=== PATIENT | female | born 1985 | race Caucasian/White ===

== ENCOUNTER 2018-07-28 06:55 | Emergency (ER) | payer BC ==
[~2018-07-28] VITALS: Ht 167.6 cm; Wt 68.0 kg
[~2018-07-28 06:55] MED LIST: ERGO400C PO; LIRA0.6P SQ; MTF500T PO; MULT-974 PO; OMG1KC PO; OXYC-12 PO; SPIR100T28 PO
--- OUTSIDE RECORDS SUMMARY | 2018-07-28 07:00 | XMS REPORT | Continuity of Care Document ---
Author Author [facility] Organization [facility] Address Unknown Phone Unavailable Care Team Providers Care Ground Support Equipment Mechanic Name Role Phone JOSE CORREA DO PP Insurance Providers Payer Name Policy Number Subscriber Name Relationship [facility] [id number] Leo Camacho Advance Directives Directive Response Recorded Date Advance Directives N 08/24/13 8:30am Health Care Power of Elementary Summer School Teacher N 08/22/13 2:08pm Organ Donor Y 08/22/13 2:08pm Problems No Known Problems or Medical conditions. Allergies, Adverse Reactions, Alerts Allergen Type Severity Reaction Last Updated No Known Drug Allergies 08/22/13 Medications Medication Dose Units Route Sig Qty Days Oxycodone Hcl/Acetaminophen (Percocet 5-325 Mg Tablet) 1 - 2 Each PO EVERY 4-6HRS PRN 35 Cholecalciferol (Vitamin D) 400 Unit PO DAILY Fish Oil 1000 Mg PO DAILY Multivitamin (Multi Vitamin Daily) 1 Tab PO DAILY Spironolactone 100 Mg PO DAILY Metformin HCl (Metformin 500 Mg) 500 Mg PO BID WITH MEALS Liraglutide (Victoza) 1.2 Mg SQ DAILY Response Recorded Date/Time Status not known Unknown Results Test Date Result Interp. Ref. Range Alanine Aminotransferase (ALT/SGPT) August 22, 2013 2:25pm 46 U/L N 30-65 Albumin August 22, 2013 2:25pm 3.7 G/ DL N 3.4-5.0 Alkaline Phosphatase August 22, 2013 2:25pm 94 U/L N 50-136 Aspartate Amino Transf (AST/SGOT) August 22, 2013 2:25pm 22 U/L N 15-37 BUN/Creatinine Ratio August 22, 2013 2:25pm 17 - Basophils # (Auto) August 22, 2013 2:25pm 0.1 10^3/uL N 0.0-0.1 Basophils (%) (Auto) August 22, 2013 2:25pm 1 % N 0-10 Blood Urea Nitrogen August 22, 2013 2:25pm 17 MG/DL N 7-18 Calcium Level August 22, 2013 2:25pm 9.1 MG/DL N 8.5-10.1 Carbon Dioxide Level August 22, 2013 2:25pm 29 MMOL/L N 21-32 Carboxyhemoglobin October 11, 2006 4:35am 3.7 % H 0.5-2.5 Chloride Level August 22, 2013 2:25pm 101 MMOL/L N 101-110 Creatinine August 22, 2013 2:25pm 1.0 MG/DL N 0.6-1.3 Eosinophils # (Auto) August 22, 2013 2:25pm 0.1 10^3/uL N 0.0-0.3 Eosinophils (%) (Auto) August 22, 2013 2:25pm 2 % N 0-10 Free Thyroxine December 17, 2009 11:45am 0.54 NG/DL PL 0.59-1.17 Glucose Level August 22, 2013 2:25pm 100 MG/DL N 74-106 Hematocrit August 22, 2013 2:25pm 42 % N 35-52 Hemoglobin August 22, 2013 2:25pm 14.3 G/DL N 11.5-16.0 Insulin Level August 01, 2009 9:30am 12.6 mU/L - Lymphocytes # (Auto) August 22, 2013 2:25pm 3.3 X 10^3 N 1.0-4.0 Lymphocytes (%) (Auto) August 22, 2013 2:25pm 42 % N 12-44 Mean Corpuscular Hemoglobin August 22, 2013 2:25pm 30 PG N 25-34 Mean Corpuscular Hemoglobin Concent August 22, 2013 2:25pm 34 G/DL N 32-36 Mean Corpuscular Volume August 22, 2013 2:25pm 88 FL N 80-99 Mean Platelet Volume August 22, 2013 2:25pm 8.9 FL N 7.4-10.4 Monocytes # (Auto) August 22, 2013 2:25pm 0.5 X 10^3 N 0.0-1.0 Monocytes (%) (Auto) August 22, 2013 2:25pm 6 % N 0-12 Monoscreen December 17, 2009 11:45am NEGATIVE - Neutrophils # (Auto) August 22, 2013 2:25pm 3.9 X 10^3 N 1.8-7.8 Neutrophils (%) (Auto) August 22, 2013 2:25pm 50 % N 42-75 Platelet Count August 22, 2013 2:25pm 321 10^3/uL N 130-400 Potassium Level August 22, 2013 2:25pm 3.6 MMOL/L N 3.6-5.0 Red Blood Count August 22, 2013 2:25pm 4.73 10^6/uL N 4.35-5.85 Red Cell Distribution Width August 22, 2013 2:25pm 12.4 % N 10.0-14.5 Serum Test, Qualitative December 17, 2009 11:45am NEGATIVE - Sodium Level August 22, 2013 2:25pm 138 MMOL/L N 135-145 Thyroid Stimulating Hormone (TSH) December 17, 2009 11:45am 2.43 UIU/ML N 0.34- 5.60 Total Bilirubin August 22, 2013 2:25pm 0.4 MG/DL N 0.0-1.0 Total Protein August 22, 2013 2:25pm 7.6 G/DL N 6.4-8.2 Urine Bacteria August 22, 2013 2:25pm TRACE /HPF - Urine Bilirubin August 22, 2013 2:25pm NEGATIVE - Urine Calcium Oxalate Crystals August 22, 2013 2:25pm FEW /LPF H - Urine Casts August 22, 2013 2:25pm NONE /LPF - Urine Clarity August 22, 2013 2:25pm SLIGHTLY CLOUDY - Urine Color August 22, 2013 2:25pm YELLOW - Urine Crystals August 22, 2013 2:25pm PRESENT /LPF H - Urine Culture Indicated August 22, 2013 2:25pm NO - Urine Glucose (UA) August 22, 2013 2:25pm NEGATIVE - Urine Ketones August 22, 2013 2:25pm NEGATIVE - Urine Leukocyte Esterase August 22, 2013 2:25pm 1+ H - Urine Mucus August 22, 2013 2:25pm MODERATE /LPF H - Urine Nitrite August 22, 2013 2:25pm NEGATIVE - Urine Test August 22, 2013 2:25pm NEGATIVE - Urine Protein August 22, 2013 2:25pm 1+ H - Urine RBC August 22, 2013 2:25pm NONE / HPF - Urine Specific [place] August 22, 2013 2:25pm 1.020 - Urine Squamous Epithelial Cells August 22, 2013 2:25pm 25-50 /HPF H - Urine Urobilinogen August 22, 2013 2:25pm 1 MG/DL - Urine WBC August 22, 2013 2:25pm 2-5 / HPF - Urine pH August 22, 2013 2:25pm 6 - White Blood Count August 22, 2013 2:25pm 8.0 10^3/uL N 4.3-11.0 Lab Scanned Report March 14, 2013 6:16pm LAB Reports [id number] - Estimat Glomerular Filtration Rate August 22, 2013 2:25pm > 60 - Urine RBC (Auto) August 22, 2013 2:25pm NEGATIVE - Procedures Procedure Code Date MRSA Screen 08/22/13 Encounters Encounter Location Date/Time Departed Emergency Room [facility] 11/05 3:50am
--- OUTSIDE RECORDS SUMMARY | 2018-07-28 07:00 | XMS REPORT | Continuity of Care Document ---
Author Author [facility] Organization [facility] Address Unknown Phone Unavailable Allergies Active Description Code Type Severity Reaction Onset Reported/Identified Relationship to Patient Clinical Status Yes No Known Drug Allergies [id number] Drug Allergy Unknown N/A 08/22/2013 Medications There is no data. Problems Date Dx Coded Attending Type Code Diagnosis Diagnosed By 08/24/2013 JOE KING MD Ot 575.11 CHRONIC CHOLECYSTITIS 08/12/2016 ROBERT KAISER Ot 789.06 ABDOMINAL PAIN, EPIGASTRIC 08/12/2016 JOE KING MD Ot 575.8 DIS OF GALLBLADDER NEC 08/12/2016 JOE KING MD Ot V72.63 PRE-PROCEDURAL LABORATORY EXAMINATION 08/12/2016 JOE KING MD Ot V72.81 [id number] CARDIOVASCULAR 08/12/2016 JOE KING MD Ot V74.8 SCREEN-BACTERIAL DIS NEC 08/12/2016 CRISTIAN CREWS MOLDING LINE ASSISTANT Ot 724.2 LUMBAGO 08/12/2016 CRISTIAN CREWS MOLDING LINE ASSISTANT Ot 724.4 LUMBOSACRAL NEURITIS NOS 08/13/2016 CRISTIAN CREWS MOLDING LINE ASSISTANT Ot E28.1 ANDROGEN EXCESS 08/13/2016 CRISTIAN CREWS MOLDING LINE ASSISTANT Ot K76.0 FATTY (CHANGE OF) LIVER, NOT ELSEWHERE C 08/13/2016 CRISTIAN CREWS MOLDING LINE ASSISTANT Ot R10.30 LOWER ABDOMINAL PAIN, UNSPECIFIED 08/13/2016 CRISTIAN CREWS MOLDING LINE ASSISTANT Ot Z90.49 ACQUIRED ABSENCE OF OTHER SPECIFIED PART 08/25/2016 CRISTIAN CREWS MOLDING LINE ASSISTANT Ot E28.1 ANDROGEN EXCESS 08/25/2016 CRISTIAN CREWS MOLDING LINE ASSISTANT Ot K76.0 FATTY (CHANGE OF) LIVER, NOT ELSEWHERE C 08/25/2016 CREWS, CRISTIAN L MOLDING LINE ASSISTANT Ot R10.30 LOWER ABDOMINAL PAIN, UNSPECIFIED 08/25/2016 CRISTIAN CREWS MOLDING LINE ASSISTANT Ot Z90.49 ACQUIRED ABSENCE OF OTHER SPECIFIED PART 12/16/2016 JOBROBERT MOLDING LINE ASSISTANT Ot 789.06 ABDOMINAL PAIN, EPIGASTRIC 12/16/2016 JOE KING MD Ot 575.8 DIS OF GALLBLADDER NEC 12/16/2016 JOE KING MD Ot V72.63 PRE-PROCEDURAL LABORATORY EXAMINATION 12/16/2016 JOE KING MD Ot V72.81 [id number] CARDIOVASCULAR 12/16/2016 JOE KING MD Ot V74.8 SCREEN-BACTERIAL DIS NEC 12/16/2016 CRISTIAN CREWS L MOLDING LINE ASSISTANT Ot 724.2 LUMBAGO 12/16/2016 CRISTIAN CREWS L MOLDING LINE ASSISTANT Ot 724.4 LUMBOSACRAL NEURITIS NOS 12/16/2016 CRISTIAN CREWS L MOLDING LINE ASSISTANT Ot E28.1 ANDROGEN EXCESS 12/16/2016 CRISTIAN CREWS MOLDING LINE ASSISTANT Ot K76.0 FATTY (CHANGE OF) LIVER, NOT ELSEWHERE C 12/16/2016 CRISTIAN CREWS L MOLDING LINE ASSISTANT Ot R10.30 LOWER ABDOMINAL PAIN, UNSPECIFIED 12/16/2016 CRISTIAN CREWS MOLDING LINE ASSISTANT Ot Z90.49 ACQUIRED ABSENCE OF OTHER SPECIFIED PART 04/27/2017 JOBROBERT MOLDING LINE ASSISTANT Ot 789.06 ABDOMINAL PAIN, EPIGASTRIC 04/27/2017 JOE KING MD Ot 575.8 DIS OF GALLBLADDER NEC 04/27/2017 JOE KING MD Ot V72.63 PRE-PROCEDURAL LABORATORY EXAMINATION 04/27/2017 JOE KING MD Ot V72.81 [id number]-ZNI-TZCFXSNQN CARDIOVASCULAR 04/27/2017 JOE KING MD Ot V74.8 SCREEN-BACTERIAL DIS NEC 04/27/2017 CRISTIAN CREWS L MOLDING LINE ASSISTANT Ot 724.2 LUMBAGO 04/27/2017 CRISTIAN CREWS MOLDING LINE ASSISTANT Ot 724.4 LUMBOSACRAL NEURITIS NOS 04/27/2017 CRISTIAN CREWS L MOLDING LINE ASSISTANT Ot E28.1 ANDROGEN EXCESS 04/27/2017 CRISTIAN CREWS L MOLDING LINE ASSISTANT Ot K76.0 FATTY (CHANGE OF) LIVER, NOT ELSEWHERE C 04/27/2017 CREWSCRISTIAN RAMON L MOLDING LINE ASSISTANT Ot R10.30 LOWER ABDOMINAL PAIN, UNSPECIFIED 04/27/2017 CREWSCRISTIAN RAMON L MOLDING LINE ASSISTANT Ot Z90.49 ACQUIRED ABSENCE OF OTHER SPECIFIED PART 05/07/2017 TRISTENFELICITASROBERT VARGAS MOLDING LINE ASSISTANT Ot 789.06 ABDOMINAL PAIN, EPIGASTRIC 05/07/2017 JOE KING MD Ot 575.8 DIS OF GALLBLADDER NEC 05/07/2017 JOE KING MD Ot V72.63 PRE-PROCEDURAL LABORATORY EXAMINATION 05/07/2017 JOE KING MD Ot V72.81 [id number]-TVA-[id number] CARDIOVASCULAR 05/07/2017 JOE KING MD Ot V74.8 SCREEN-BACTERIAL DIS NEC 05/07/2017 CRISTIAN CREWS MOLDING LINE ASSISTANT Ot 724.2 LUMBAGO 05/07/2017 CRISTIAN CREWS L MOLDING LINE ASSISTANT Ot 724.4 LUMBOSACRAL NEURITIS NOS 05/07/2017 CRISTIAN CREWS L MOLDING LINE ASSISTANT Ot E28.1 ANDROGEN EXCESS 05/07/2017 ELEONORA CRISTIAN L MOLDING LINE ASSISTANT Ot K76.0 FATTY (CHANGE OF) LIVER, NOT ELSEWHERE C 05/07/2017 ELEONORA CRISTIAN Wynn MOLDING LINE ASSISTANT Ot R10.30 LOWER ABDOMINAL PAIN, UNSPECIFIED 05/07/2017 ELEONORA CRISTIAN Wynn MOLDING LINE ASSISTANT Ot Z90.49 ACQUIRED ABSENCE OF OTHER SPECIFIED PART 05/12/2017 JOBROBERT MOLDING LINE ASSISTANT Ot 789.06 ABDOMINAL PAIN, EPIGASTRIC 05/12/2017 JOE KING MD Ot 575.8 DIS OF GALLBLADDER NEC 05/12/2017 JOE KING MD Ot V72.63 PRE-PROCEDURAL LABORATORY EXAMINATION 05/12/2017 JOE KING MD Ot V72.81 [id number] CARDIOVASCULAR 05/12/2017 JOE KING MD Ot V74.8 SCREEN-BACTERIAL DIS NEC 05/12/2017 CRISTIAN CREWS L MOLDING LINE ASSISTANT Ot 724.2 LUMBAGO 05/12/2017 CRISTIAN CREWS L MOLDING LINE ASSISTANT Ot 724.4 LUMBOSACRAL NEURITIS NOS 05/12/2017 CRISTIAN CREWS MOLDING LINE ASSISTANT Ot E28.1 ANDROGEN EXCESS 05/12/2017 CRISTIAN CREWS MOLDING LINE ASSISTANT Ot K76.0 FATTY (CHANGE OF) LIVER, NOT ELSEWHERE C 05/12/2017 CRISTIAN CREWS MOLDING LINE ASSISTANT Ot R10.30 LOWER ABDOMINAL PAIN, UNSPECIFIED 05/12/2017 CRISTIAN CREWS MOLDING LINE ASSISTANT Ot Z90.49 ACQUIRED ABSENCE OF OTHER SPECIFIED PART 06/15/2017 JOBROBERT M MOLDING LINE ASSISTANT Ot 789.06 ABDOMINAL PAIN, EPIGASTRIC 06/15/2017 JOE KING MD Ot 575.8 DIS OF GALLBLADDER NEC 06/15/2017 JOE KING MD Ot V72.63 PRE-PROCEDURAL LABORATORY EXAMINATION 06/15/2017 JOE KING MD Ot V72.81 IPHU-DYW-DAYDEAOED CARDIOVASCULAR 06/15/2017 JOE KING MD Ot V74.8 SCREEN-BACTERIAL DIS NEC 06/15/2017 CRISTIAN CREWS L MOLDING LINE ASSISTANT Ot 724.2 LUMBAGO 06/15/2017 ELEONORACRISTIAN L MOLDING LINE ASSISTANT Ot 724.4 LUMBOSACRAL NEURITIS NOS 06/15/2017 CRISTIAN CREWS L MOLDING LINE ASSISTANT Ot E28.1 ANDROGEN EXCESS 06/15/2017 CRISTIAN CREWS MOLDING LINE ASSISTANT Ot K76.0 FATTY (CHANGE OF) LIVER, NOT ELSEWHERE C 06/15/2017 CRISTIAN CREWS MOLDING LINE ASSISTANT Ot R10.30 LOWER ABDOMINAL PAIN, UNSPECIFIED 06/15/2017 CRISTIAN CREWS MOLDING LINE ASSISTANT Ot Z90.49 ACQUIRED ABSENCE OF OTHER SPECIFIED PART 06/17/2017 ROBERT KAISER M MOLDING LINE ASSISTANT Ot 789.06 ABDOMINAL PAIN, EPIGASTRIC 06/17/2017 JOE KING MD Ot 575.8 DIS OF GALLBLADDER NEC 06/17/2017 JOE KING MD Ot V72.63 PRE-PROCEDURAL LABORATORY EXAMINATION 06/17/2017 JOE KING MD Ot V72.81 [id number]-[id number]-XPAMUPCAJ CARDIOVASCULAR 06/17/2017 JOE KING MD Ot V74.8 SCREEN-BACTERIAL DIS NEC 06/17/2017 CRISTIAN CREWS MOLDING LINE ASSISTANT Ot 724.2 LUMBAGO 06/17/2017 CRISTIAN CREWS MOLDING LINE ASSISTANT Ot 724.4 LUMBOSACRAL NEURITIS NOS 06/17/2017 CRISTIAN CREWS MOLDING LINE ASSISTANT Ot E28.1 ANDROGEN EXCESS 06/17/2017 CRISTIAN CREWS MOLDING LINE ASSISTANT Ot K76.0 FATTY (CHANGE OF) LIVER, NOT ELSEWHERE C 06/17/2017 CRISTIAN CREWS MOLDING LINE ASSISTANT Ot R10.30 LOWER ABDOMINAL PAIN, UNSPECIFIED 06/17/2017 CRISTIAN CREWS MOLDING LINE ASSISTANT Ot Z90.49 ACQUIRED ABSENCE OF OTHER SPECIFIED PART 06/21/2017 ROBERT KAISER MOLDING LINE ASSISTANT Ot 789.06 ABDOMINAL PAIN, EPIGASTRIC 06/21/2017 JOE KING MD Ot 575.8 DIS OF GALLBLADDER NEC 06/21/2017 JOE KING MD Ot V72.63 PRE-PROCEDURAL LABORATORY EXAMINATION 06/21/2017 JOE KING MD Ot V72.81 [id number] CARDIOVASCULAR 06/21/2017 JOE KING MD Ot V74.8 SCREEN-BACTERIAL DIS NEC 06/21/2017 CRISTIAN CREWS MOLDING LINE ASSISTANT Ot 724.2 LUMBAGO 06/21/2017 CRISTIAN CREWS MOLDING LINE ASSISTANT Ot 724.4 LUMBOSACRAL NEURITIS NOS 06/21/2017 CRISTIAN CREWS MOLDING LINE ASSISTANT Ot E28.1 ANDROGEN EXCESS 06/21/2017 CRISTIAN CREWS MOLDING LINE ASSISTANT Ot K76.0 FATTY (CHANGE OF) LIVER, NOT ELSEWHERE C 06/21/2017 CRISTIAN CREWS MOLDING LINE ASSISTANT Ot R10.30 LOWER ABDOMINAL PAIN, UNSPECIFIED 06/21/2017 CRISTIAN CREWS MOLDING LINE ASSISTANT Ot Z90.49 ACQUIRED ABSENCE OF OTHER SPECIFIED PART 06/22/2017 Ot 255.0 SYLVAIN'S SYNDROME 06/22/2017 Ot 783.1 ABNORMAL WEIGHT GAIN 06/22/2017 Ot 255.0 SYLVAIN'S SYNDROME 06/22/2017 Ot 783.1 ABNORMAL WEIGHT GAIN 06/24/2017 Ot 255.0 SYLVAIN'S SYNDROME 06/24/2017 Ot 783.1 ABNORMAL WEIGHT GAIN Procedures There is no data. Results There is no data. Encounters ACCT No. Visit Date/Time Discharge Status Pt. Type Provider Facility Loc./Unit Complaint [id number] 08/12/2016 07:12:00 08/12/2016 23:59:59 CLS Outpatient CRISTIAN CREWS [facility] RAD HIGH DHEA,FLANK PAIN [id number] 12/21/2015 13:28:00 12/21/2015 23:59:59 CLS Outpatient JS GARCÍA APRN [facility] QUICK [id number] 02/14/2014 14:41:00 02/14/2014 23:59:59 CLS Outpatient CRISTIAN CREWS [facility] RAD LUMBALGIA W/ RADICULOPATHY [id number] 08/24/2013 07:40:00 08/24/2013 16:45:00 DIS Outpatient JOE KING MD [facility] SDC BILILARY SLUDGE [id number] 08/22/2013 13:55:00 08/22/2013 23:59:59 CLS Outpatient JOE KING MD [facility] PREOP BILIARY SLUDGE [id number] 07/27/2013 08:22:00 07/27/2013 23:59:59 CLS Outpatient ROBERT KAISER [facility] RAD EPIGASTRIC PAIN [id number] 09/27/2012 11:09:00 Document Registration
[2018-07-28 07:46] LABS: BASOPHILS # (AUTO) 0.1 10^3/uL (0.0-0.1); BASOPHILS % (AUTO) 1 % (0-10); EOSINOPHILS # (AUTO) 0.3 10^3/uL (0.0-0.3); EOSINOPHILS % (AUTO) 3 % (0-10); HEMATOCRIT 36 % (35-52); HEMOGLOBIN 11.9 G/DL (11.5-16.0); LYMPHOCYTES # (AUTO) 2.7 X 10^3 (1.0-4.0); LYMPHOCYTES % (AUTO) 32 % (12-44); MEAN CORPUSCULAR HEMOGLOBIN 28 PG (25-34); MEAN CORPUSCULAR HGB CONC 33 G/DL (32-36); MEAN CORPUSCULAR VOLUME 84 FL (80-99); MEAN PLATELET VOLUME 9.2 FL (7.4-10.4); MONOCYTES # (AUTO) 0.4 X 10^3 (0.0-1.0); MONOCYTES % (AUTO) 5 % (0-12); NEUTROPHILS % (AUTO) 60 % (42-75); PLATELET COUNT 351 10^3/uL (130-400); RED BLOOD COUNT 4.24 10^6/uL (4.35-5.85); WHITE BLOOD COUNT 8.4 10^3/uL (4.3-11.0)
[2018-07-28 07:47] LABS: BILIRUBIN,URINE NEGATIVE (NEGATIVE); CLARITY,URINE CLEAR; COLOR,URINE AMBER; GLUCOSE, URINE (UA) NEGATIVE (NEGATIVE); KETONES,URINE 2+ (NEGATIVE); LEUKOCYTE ESTERASE ,URINE 1+ (NEGATIVE); NITRITE,URINE NEGATIVE (NEGATIVE); PH,URINE 6 (5-9); PROTEIN,URINE 1+ (NEGATIVE); UROBILINOGEN,URINE 1 MG/DL (NORMAL)
[2018-07-28 08:01] LABS: BACTERIA,URINE FEW /HPF
[2018-07-28 08:02] LABS: YEAST,URINE FEW /HPF
[2018-07-28 08:03] LABS: ALANINE AMINOTRANSFERASE 9 U/L (0-55); ALBUMIN 4.2 GM/DL (3.2-4.5); ALKALINE PHOSPHATASE 54 U/L (40-136); BILIRUBIN,TOTAL 0.5 MG/DL (0.1-1.0); BUN/CREATININE RATIO 19; CALCIUM 9.2 MG/DL (8.5-10.1); CARBON DIOXIDE 23 MMOL/L (21-32); CHLORIDE 107 MMOL/L (98-107); CREATININE SERUM 0.79 MG/DL (0.60-1.30); GFR ESTIMATED > 60; GLUCOSE 90 MG/DL (70-105); POTASSIUM 3.6 MMOL/L (3.6-5.0); SODIUM 138 MMOL/L (135-145); TOTAL PROTEIN 6.8 GM/DL (6.4-8.2)
[2018-07-28] MEDS ORDERED: KETOROLAC 30 MG/ML VIAL IVP STA (08:04)
[2018-07-28] MEDS ORDERED: NS IV 1000 ML 1,000 ML IV ONE (08:04)
--- NOTE | 2018-07-28 08:59 | ED GI ---
General Chief Complaint: Abdominal/GI Problems Stated Complaint: ABD PAIN Nursing Triage Note: Pt ambulates to ED Room 9 from waiting room. Pt c/o RLQ 3/10 intermittent sharp pain/tenderness that started @ 0200. +Nausea/-Vomitting. HX: PCOS, ovarian cyst. LMP: 06/22/2018 Sepsis Screen: No Definite Risk Source of Information: Patient Exam Limitations: No Limitations History of Present Illness Date Seen by Provider: Jul 28, 2018 Time Seen by Provider: 08:00 Initial Comments Here with report of right lower quadrant abdominal pain that radiates to the back. Noted that she had some central abdominal discomfort yesterday afternoon and evening with some nausea. That went away. She did have some chills. At about 2 a.m. she woke up with the pain is sharp. Still has some nausea but no vomiting. Last menstrual period was the beginning of last month. She states that she typically has irregular periods and that has been going on for some time. Denies vaginal discharge or bleeding. Denies pain with sexual activity. Denies blood in her urine or stool. Timing/Duration: 12 Hours, Changing Over Time Severity/Quality: Moderate, Sharp Location: RLQ Radiation: Back Activities at Onset: None Modifying Factors: Worsens With Movement Associated Symptoms: No Back Pain, No Chest Pain, No Fever/Chills; Nausea/ Vomiting; No Shortness of Air, No Weakness Allergies and Home Medications Allergies Coded Allergies: No Known Drug Allergies (Unverified , 08/22/13) Home Medications Cholecalciferol 400 Unit Capsule, 400 UNIT PO DAILY, (Reported) Liraglutide 0.6 Mg/0.1 Ml Pen.injctr, 1.2 MG SQ DAILY, (Reported) Metformin Hcl 500 Mg Tablet, 500 MG PO BID WITH MEALS, (Reported) Multivitamin 1 Each Tablet, 1 TAB PO DAILY, (Reported) [place] 3 Polyunsat Fatty Acids 1,000 Mg Cap, 1,000 MG PO DAILY, (Reported) Oxycodone Hcl/Acetaminophen 1 Each Tablet, 1-2 EACH PO EVERY 4-6HRS PRN, ( Reported) Spironolactone 100 Mg Tablet, 100 MG PO DAILY, (Reported) Patient Home Medication List Home Medication List Reviewed: Yes Review of Systems Review of Systems Constitutional: see HPI, chills; No fever EENTM: No Symptoms Reported Respiratory: No Symptoms Reported Cardiovascular: No Symptoms Reported Gastrointestinal: See HPI, Abdominal Pain; Denies Constipated, Denies Diarrhea ; Nausea Genitourinary: No Symptoms Reported Musculoskeletal: no symptoms reported All Other Systems Reviewed Negative Unless Noted: Yes Past Avbgonb-Euuxlv-Kbqmyg Hx Past Med/Social Hx: Reviewed Nursing Past Med/Soc Hx Patient Social History Alcohol Use: Denies Use Recreational Drug Use: No Smoking Status: Never a Smoker Recent Foreign Travel: No Contact w/Someone Who Travel: No Recent Infectious Disease Expo: No Recent Hopitalizations: No Seasonal Allergies Seasonal Allergies: Yes Past Medical History Surgeries: Yes Gallbladder Respiratory: No Cardiac: No Neurological: No Last Menstrual Period: Jun 22, 2018 Reproductive Disorders: No (PCOS) Female Reproductive Disorders: Ovarian Cyst, Polycystic Ovarian Dis Genitourinary: No Gastrointestinal: Yes Musculoskeletal: No Endocrine: Yes Integumentary: No Blood Disorders: No Family Medical History Reviewed Nursing Family Hx Physical Exam Vital Signs Vital Signs - First Documented 07/28/18 07:20 Temp 98.1 Pulse 62 Resp 16 B/P (MAP) 121/80 (94) Pulse Ox 99 O2 Delivery Room Air Capillary Refill : Less Than 3 Seconds Height/Weight/BMI Height: 5'6.00" Weight: 150lbs. oz. 68.108696si; BMI Method:Stated General Appearance: WD/WN, no apparent distress HEENT: PERRL/EOMI, pharynx normal Neck: full range of motion, supple Respiratory: lungs clear, normal breath sounds Cardiovascular: regular rate, rhythm, no murmur Gastrointestinal: soft; No guarding, No rebound; tenderness (right lower quadrant) Extremities: non-tender, normal inspection Neurologic/Psychiatric: alert, oriented x 3 Skin: normal color, warm/dry Progress/Results/Core Measures Results/Orders Lab Results Laboratory Tests Test 07/28/18 07:33 07/28/18 07:38 Range/Units Urine Color PREMA H Urine Clarity CLEAR Urine pH 6 5-9 Urine Specific [place] 1.020 1.016-1.022 Urine Protein 1+ H NEGATIVE Urine Glucose (UA) NEGATIVE NEGATIVE Urine Ketones 2+ H NEGATIVE Urine Nitrite NEGATIVE NEGATIVE Urine Bilirubin NEGATIVE NEGATIVE Urine Urobilinogen 1 NORMAL MG/DL Urine Leukocyte Esterase 1+ H NEGATIVE Urine RBC (Auto) NEGATIVE NEGATIVE Urine RBC 2-5 H /HPF Urine WBC 5-10 H /HPF Urine Squamous Epithelial Cells 10-25 H /HPF Urine Crystals NONE /LPF Urine Bacteria FEW H /HPF Urine Casts NONE /LPF Urine Mucus MODERATE H /LPF Urine Yeast FEW H /HPF Urine Culture Indicated YES White Blood Count 8.4 4.3-11.0 10^3/uL Red Blood Count 4.24 L 4.35-5.85 10^6/uL Hemoglobin 11.9 11.5-16.0 G/DL Hematocrit 36 35-52 % Mean Corpuscular Volume 84 80-99 FL Mean Corpuscular Hemoglobin 28 25-34 PG Mean Corpuscular Hemoglobin Concent 33 32-36 G/DL Red Cell Distribution Width 14.0 10.0-14.5 % Platelet Count 351 130-400 10^3/uL Mean Platelet Volume 9.2 7.4-10.4 FL Neutrophils (%) (Auto) 60 42-75 % Lymphocytes (%) (Auto) 32 12-44 % Monocytes (%) (Auto) 5 0-12 % Eosinophils (%) (Auto) 3 0-10 % Basophils (%) (Auto) 1 0-10 % Neutrophils # (Auto) 5.0 1.8-7.8 X 10^3 Lymphocytes # (Auto) 2.7 1.0-4.0 X 10^3 Monocytes # (Auto) 0.4 0.0-1.0 X 10^3 Eosinophils # (Auto) 0.3 0.0-0.3 10^3/uL Basophils # (Auto) 0.1 0.0-0.1 10^3/uL Sodium Level 138 135-145 MMOL/L Potassium Level 3.6 3.6-5.0 MMOL/L Chloride Level 107 98-107 MMOL/L Carbon Dioxide Level 23 21-32 MMOL/L Anion Gap 8 5-14 MMOL/L Blood Urea Nitrogen 15 7-18 MG/DL Creatinine 0.79 0.60-1.30 MG/DL Estimat Glomerular Filtration Rate > 60 BUN/Creatinine Ratio 19 Glucose Level 90 70-105 MG/DL Calcium Level 9.2 8.5-10.1 MG/DL Corrected Calcium 9.0 8.5-10.1 MG/DL Total Bilirubin 0.5 0.1-1.0 MG/DL Aspartate Amino Transf (AST/SGOT) 12 5-34 U/L Alanine Aminotransferase (ALT/SGPT) 9 0-55 U/L Alkaline Phosphatase 54 40-136 U/L C-Reactive Protein High Sensitivity 0.45 0.00-0.50 MG/DL Total Protein 6.8 6.4-8.2 GM/DL Albumin 4.2 3.2-4.5 GM/DL My Orders Orders - GLENDY MONAHAN MD Cbc With Automated Diff (07/28/18 07:40) Comprehensive Metabolic Panel (07/28/18 07:40) Hs C Reactive Protein (07/28/18 07:40) Ua Culture If Indicated (07/28/18 07:40) Urine Bedside (07/28/18 07:40) Saline Lock/Iv-Start (07/28/18 07:40) Urine Culture (07/28/18 07:33) Ns Iv 1000 Ml (Sodium Chloride 0.9%) (07/28/18 08:04) Ketorolac Injection (Toradol Injection) (07/28/18 08:04) Ct Abdomen/Pelvis Wo (07/28/18 08:15) Hydrocodone/Apap 5/325 Tablet (Lortab 5 (07/28/18 10:05) Medications Given in ED Current Medications Medications Dose Ordered Sig/Sudhir Route Start Time Stop Time Status Last Admin Dose Admin Sodium Chloride 1,000 ml @ 0 mls/hr Q0M ONCE IV 07/28/18 08:04 07/28/18 08:09 DC 07/28/18 08:18 1,000 MLS/HR Vital Signs/I&O 07/28/18 07:20 Temp 98.1 Pulse 62 Resp 16 B/P (MAP) 121/80 (94) Pulse Ox 99 O2 Delivery Room Air Blood Pressure Mean: 94 Urine -Bedside: Negative Progress Progress Note : Progress Note Seen and evaluated. IV, labs, UA. Normal saline 1 L bolus. Toradol [address] scan. Patient reports allergy to contrast dye. We will do a noncontrast CT scan abdomen and pelvis. Monitor patient. 1000: Hydrocodone 5/ [address] negative. UA does show concerns for urinary tract infection. We will treat that outpatient. Waiting for fluids to complete. 1020: Discharge home with return precautions. Patient family verbalized understanding instructions and agreement with plan. Diagnostic Imaging Diagonstic Imaging: CT Plain Films/CT/US/NM/MRI: abdomen, pelvis Comments [facility] [place], [place] NAME: TEENA CAMACHO [facility] REC#: [id number] PT STATUS: REG ER : 1985 PHYSICIAN: GLENDY MONAHAN MD ADMIT DATE: 07/28/18/ER Draft Date of Exam:07/28/18 CT ABDOMEN/PELVIS WO PROCEDURE: CT abdomen and pelvis without contrast. TECHNIQUE: Multiple contiguous axial images were obtained through the abdomen and pelvis without the use of intravenous contrast. INDICATION: Low abdominal pain and nausea. Comparison is made to the study of 08/12/2016. No focal hepatic or splenic abnormalities identified. Surgical findings are present at the level of the stomach. Unenhanced images of the pancreas, adrenal glands and spleen are unremarkable. Kidneys are stable in appearance without evidence of hydronephrosis or mass. Gallbladder surgically absent. There is no free fluid within the abdomen or pelvis. There has been mild increase in prominent mesenteric lymph nodes which are most pronounced in right lower quadrant. Appendix has a normal appearance. There is no evidence of pathologic adenopathy. Trace pelvic free fluid is noted with occasional calcified phleboliths seen bilaterally in the pelvis. IMPRESSION: Small amount of pelvic free fluid may be physiologic in nature. There has been slight increase in prominence of mesenteric lymph nodes. Although these are not pathologically enlarged, this may reflect mesenteric adenitis. Dictated on workstation # [id number] Dict: 07/28/18 0910 Trans: 07/28/18 0916 [facility] [id number] Interpreted by: ANGELICA TOVAR MD Electronically signed by: Departure Impression Primary Impression: Urinary tract infection Qualified Codes: N30.00 - Acute cystitis without hematuria Additional Impression: Right lower quadrant abdominal pain Disposition: 01 HOME, SELF-CARE Condition: Improved Departure-Patient Inst. Referrals: KYLAH CREWS DO (PCP) Primary Care Physician Patient Instructions: Acute Abdomen (Belly Pain), Adult (DC), Urinary Tract Infection, Adult (DC) Add. Discharge Instructions: All discharge instructions reviewed with patient and/or family. Voiced understanding. Take medications as directed. You may take Tylenol/acetaminophen 1000 mg every 8 hours as needed for pain if you're not taking the prescribed pain medicine. Do not take both together as they both have acetaminophen in them. Drink plenty of fluids. Clear liquid or light diet for the next 24 hours and then advance as tolerated. Return for worse pain, fever, vomiting, weakness, breathing problems or other concerns as needed. Scripts Hydrocodone Bit/Acetaminophen (Hydrocodone/Acetaminophen 5/325mg Tablet) 1 Tab Tab 1 EACH PO Q6H PRN for PAIN-MODERATE, #12 TAB 0 Refills Prov: GLENDY MONAHAN MD 07/28/18 Cephalexin (Cephalexin) 500 Mg Tablet 500 MG PO BID, #14 TAB 0 Refills Prov: GLENDY MONAHAN MD 07/28/18 GLENDY MONAHAN MD Jul 28, 2018 08:59
--- NOTE | 2018-07-28 09:17 | Diagnostic Imaging Report ---
PROCEDURE: CT abdomen and pelvis without contrast. TECHNIQUE: Multiple contiguous axial images were obtained through the abdomen and pelvis without the use of intravenous contrast. INDICATION: Low abdominal pain and nausea. Comparison is made to the study of 08/12/2016. No focal hepatic or splenic abnormalities identified. Surgical findings are present at the level of the stomach. Unenhanced images of the pancreas, adrenal glands and spleen are unremarkable. Kidneys are stable in appearance without evidence of hydronephrosis or mass. Gallbladder surgically absent. There is no free fluid within the abdomen or pelvis. There has been mild increase in prominent mesenteric lymph nodes which are most pronounced in right lower quadrant. Appendix has a normal appearance. There is no evidence of pathologic adenopathy. Trace pelvic free fluid is noted with occasional calcified phleboliths seen bilaterally in the pelvis. IMPRESSION: Small amount of pelvic free fluid may be physiologic in nature. There has been slight increase in prominence of mesenteric lymph nodes. Although these are not pathologically enlarged, this may reflect mesenteric adenitis. Dictated by: Dictated on workstation # [id number]
[2018-07-28] MEDS ORDERED: HYDROcodone/APAP 5 MG/325 MG (LORTAB) TAB PO STA (10:05)
[2018-07-28] MEDS ORDERED: CEPH500T PO (10:21)
[2018-07-28] MEDS ORDERED: ACHD5005 PO (10:21)
[2018-07-28 10:37] VITALS: BP 126/74
== END 2018-07-28 10:37 | disposition home or self-care (01) ==
LOC: EDUNIT# 06:55 → ER 06:56
DX: N39.0 Urinary tract infection, site not specified (principal); Z79.84 Long term (current) use of oral hypoglycemic drugs; Z87.448 Personal history of other diseases of urinary system
CPT/HCPCS: 36415; 74176; 80053; 81000; 84703; 85025; 86141; 87088; 96361; 96374

== ENCOUNTER 2020-12-04 10:41 | Outpatient (RCR) | payer BC ==
[~2020-12-04] VITALS: Ht 167.4 cm; Wt 56.0 kg
[~2020-12-04 10:41] MED LIST changes: -CALC-140 PO; -HYDR-3817 PO; -MULT-1136 PO
[2020-12-04] MEDS ORDERED: CALC-140 PO (11:29)
[2020-12-04] MEDS ORDERED: MULT-1136 PO (11:29)
[2020-12-05] MEDS ORDERED: HYDR-3817 PO (10:08)
== END 2020-12-04 12:09 | disposition home or self-care (01) ==
LOC: PREOP 10:41
PROVIDERS: ATTEND Surgery
DX: Z01.818 Encounter for other preprocedural examination (principal)

== ENCOUNTER → 2020-12-04 | Outpatient (CLI) | payer BC ==
[~2020-12-04] MED LIST changes: +ACHD5005 PO; +CALC-140 PO; +CEPH500T PO; +HYDR-3817 PO; +MULT-1136 PO
== END ==
LOC: LABNPT 08:59
PROVIDERS: ATTEND Surgery
DX: Z20.822 Contact with and (suspected) exposure to COVID-19 (principal)
CPT/HCPCS: 87635

== ENCOUNTER 2020-12-05 09:40 | Day surgery (SDC) | payer BC ==
[2020-12-05] VITALS (8 sets, daily range): BP systolic 102–123; BP diastolic 63–79
[~2020-12-05] VITALS: Ht 167.6 cm; Wt 55.9 kg
[~2020-12-05 09:40] MED LIST changes: +CALC-140 PO; +MULT-1136 PO
--- NOTE | 2020-12-05 10:06 | Progress Note-Pre Operative ---
Pre-Operative Progress Note H&P Reviewed The H&P was reviewed, patient examined and no changes noted. Date Seen by Provider: Dec 05, 2020 Time Seen by Provider: 10:00 Date H&P Reviewed: Dec 05, 2020 Time H&P Reviewed: 10:00 Pre-Operative Diagnosis: persistent right cervical lymphadenopathy JOE KING MD Dec 05, 2020 10:06
[2020-12-05] MEDS ORDERED: HYDR-3817 PO (10:08)
--- NOTE | 2020-12-05 10:08 | Discharge Inst-Surgical ---
D/C Lap Instructions-CHRISTINE New, Converted, or Re-Newed RX: RX on Chart Follow Up Appt in 2 weeks Activity as tolerated Regular Diet Symptoms to Report: Fever over 101 degree F, Nausea/Vomiting Infection Signs and Symptoms to report: Increased redness, Foul odor of wound, Increased drainage Bathing instructions: May shower Operative Area Clean/Dry; Keep incision clean/dry If any problems/questions: Contact your physician or go to Emergency Room JOE KING MD Dec 05, 2020 10:08
[2020-12-05] MEDS ORDERED: HYDROcodone/APAP 7.5 MG/325 MG (LORTAB, LORCET PLUS) TABLET PO PRN (10:15)
[2020-12-05] MEDS ORDERED: ACETAMINOPHEN 325 MG TABLET PO PRN (10:15)
[2020-12-05] MEDS ORDERED: morphine INJ 10 MG/ML 1ML (SYR OR VIAL) IVP PRN ×2 (10:15)
[2020-12-05] MEDS ORDERED: ONDANSETRON 4 MG/2 ML (SDV) Z0FRAN IVP PRN ×2 (10:15→12:15)
[2020-12-05] MEDS ORDERED: MIDAZOLAM 2 MG/2 ML (VERSED) VIAL ONE ×2 (10:28→10:29)
[2020-12-05] MEDS ORDERED: PANTOPRAZOLE 40 MG (PROTONIX) VIAL ONE (10:28)
[2020-12-05] MEDS ORDERED: proPOfol 200 MG/20 ML (DIPRIVAN) VIAL IV ONE (10:29)
[2020-12-05] MEDS ORDERED: FAMOTIDINE 20MG/2ML IV (PEPCID) ONE (10:29)
[2020-12-05] MEDS ORDERED: fentaNYL INJECTION 100 MCG/2 ML AMP ONE (10:29)
[2020-12-05] MEDS ORDERED: LIDOCAINE PF 2% 5 ML (XYLOCAINE) VIAL ONE (10:29)
[2020-12-05] MEDS ORDERED: ONDANSETRON 4 MG/2 ML (SDV) Z0FRAN ONE (10:29)
[2020-12-05] MEDS ORDERED: MIDAZOLAM 2 MG/2 ML (VERSED) VIAL IV ONE (10:30)
[2020-12-05] MEDS ORDERED: ONDANSETRON 4 MG/2 ML (SDV) Z0FRAN IV ONE (10:30)
[2020-12-05] MEDS ORDERED: FAMOTIDINE 20MG/2ML IV (PEPCID) IV ONE (10:30)
[2020-12-05] MEDS ORDERED: LIDOCAINE/EPI 1%-1:100,000 (XYLOCAINE) 50 ML ONE (10:31)
[2020-12-05] MEDS ORDERED: SEVOFLURANE (ULTANE) 15 ML INHAL SOLN ONE ×3 (10:35→12:10)
[2020-12-05] MEDS ORDERED: ceFAZolin INJECTION 1,000 MG ONE (10:44)
[2020-12-05] MEDS ORDERED: ceFAZolin INJECTION 1,000 MG in WATER (STERILE) FOR INJECTION 10 ML IV ONE (10:45)
[2020-12-05] MEDS ORDERED: LACTATED RINGERS 1,000 ML IV PRN (10:45)
--- NOTE | 2020-12-05 12:05 | Progress Note-Post Operative ---
Post-Operative Progess Note Surgeon (s)/Slat Pickler (s) Surgeon JEO KING MD Slat Pickler: tiffanie george TUBE STATION ATTENDANT Pre-Operative Diagnosis persistent right cervical lymphadenopathy Post-Operative Diagnosis same Procedure & Operative Findings Date of Procedure 12/05/20 Procedure Performed/Findings excision right deep cervical lymph node x2. Anesthesia Type general LMA Estimated Blood Loss Estimated blood loss (mL): minimal Specimens/Packing Specimens Removed right deep cervical lymph node x2 JOE KING MD Dec 05, 2020 12:05
[2020-12-05] MEDS ORDERED: morphine INJ 10 MG/ML 1ML (SYR OR VIAL) IVP ONE (12:15)
[2020-12-05] MEDS ORDERED: HYDROmorphone 2 MG/ML VIAL (DILAUDID) IV ONE (12:15)
--- NOTE | 2020-12-05 13:29 | OPERATIVE REPORT ---
DATE OF SERVICE: 12/05/2020 ATTENDING PRIMARY STENCIL INSPECTOR: Davida Blevins DNP. PREOPERATIVE DIAGNOSIS: Persistent right zone-2 deep cervical lymphadenopathy. POSTOPERATIVE DIAGNOSIS: Persistent right zone-2 deep cervical lymphadenopathy. PROCEDURE: Excision of right deep cervical lymph node x2. SURGEON: oJe King MD CABLE TELEVISION TECHNICIAN: Prem Naidu APRN. ANESTHESIA: General laryngeal mask airway with local. ESTIMATED BLOOD LOSS: Minimal. FINDINGS: Two small adjacent slightly enlarged lymph nodes of the deep cervical chain at zone 2 of the neck. DISPOSITION: The patient tolerated the procedure well. INDICATIONS: The patient is a 35-year-old female known to us. She was referred over to us for persistent lymphadenopathy of the right cervical region. She noticed this approximately 2 months ago and reports that they were also slightly painful. She had seen her primary care physician and at that time, she did feel sick at the time and then did notice lymphadenopathy; however, states that the lymphadenopathy has persisted. She does have a remote family history in some form of lymphoma with her maternal great grandmother having the disease. She does not report any fever nor chills as well as no recent inadvertent weight loss. DESCRIPTION OF PROCEDURE: The patient was brought to the operating room, laid supine on the table. After adequate IV pain and sedative medications and general endotracheal intubation, the abdomen was prepped and draped in standard surgical fashion. A 0.5% Marcaine with epinephrine was used to anesthetize the overlying skin of the right deep cervical chain at zone-2. A transverse skin incision along the glabellar line was then made using a 15 blade. The subcutaneous tissue was then dissected down using electrocautery. The fascia was then opened using electrocautery. We then proceeded with blunt dissection using Metzenbaum scissors, identifying two slightly enlarged as well as more firm lymph nodes, which were then excised using Metzenbaum scissors with visualization of good hemostasis. The fascia was then closed using 3-0 Vicryl interrupted sutures and skin was closed using 4-0 Monocryl running subcuticular suture. Wound was then cleaned and covered with Dermabond. The patient tolerated the procedure well. We will await the biopsy results and have her follow up in the office. She does not have any restrictions. Job ID: [id number] DocumentID: [id number] Dictated Date: 12/05/2020 12:11:36 Wax Ball Knock Out Worker Date: 12/05/2020 13:29:18 Dictated By: JOE KING MD MTDD
--- NOTE | 2020-12-11 13:29 | Anesthesia-General Post-Op ---
General Patient Condition Mental Status/LOC: Same as Preop Cardiovascular: Satisfactory Nausea/Vomiting: Absent Respiratory: Satisfactory Pain: Controlled Complications: Absent Post Op Complications Complications None Follow Up Care/Instructions Patient Instructions None needed. Anesthesia/Patient Condition Patient Condition Patient was seen on 12-05-20 at approximately 1300 and she was doing well, no complaints, stable vital signs, no apparent adverse anesthesia problems. STALIN CALLE DO Dec 11, 2020 13:29
== END 2020-12-05 14:10 | disposition home or self-care (01) ==
LOC: SDC 09:40
PROVIDERS: ATTEND Surgery
DX: R59.0 Localized enlarged lymph nodes (principal); E28.2 Polycystic ovarian syndrome; E66.01 Morbid (severe) obesity due to excess calories; Z68.1 Body mass index [BMI] 19.9 or less, adult; Z79.899 Other long term (current) drug therapy; Z91.041 Radiographic dye allergy status; Z83.3 Family history of diabetes mellitus; Z80.49 Family history of malignant neoplasm of other genital organs; Z80.51 Family history of malignant neoplasm of kidney
CPT/HCPCS: 84703; 87081; 88305; 88341; 88342

== ENCOUNTER 2021-08-22 08:11 | Outpatient (CLI) | payer BC ==
[~2021-08-22 08:11] MED LIST changes: +HYDR-3817 PO
[2021-08-22] MEDS ORDERED: LACTATED RINGERS 1,000 ML IV ONE (08:45)
[2021-08-22 08:47] VITALS: BP 118/64
== END 2021-08-22 09:49 | disposition home or self-care (01) ==
LOC: SDC 08:11
PROVIDERS: ATTEND Nurse Practitioner Family
DX: E86.0 Dehydration (principal)
CPT/HCPCS: 96360

== ENCOUNTER 2021-10-30 12:55 | Outpatient (RCR) | payer BC ==
[2021-09-03 14:32] LABS: BASOPHILS # (AUTO) 0.1 10^3/uL (0.0-0.1); BASOPHILS % (AUTO) 1 % (0-10); EOSINOPHILS # (AUTO) 0.6 10^3/uL (0.0-0.3); EOSINOPHILS % (AUTO) 8 % (0-10); HEMATOCRIT 34 % (35-52); HEMOGLOBIN 9.9 g/dL (11.5-16.0); LYMPHOCYTES # (AUTO) 2.8 10^3/uL (1.0-4.0); LYMPHOCYTES % (AUTO) 40 % (12-44); MEAN CORPUSCULAR HEMOGLOBIN 20 pg (25-34); MEAN CORPUSCULAR HGB CONC 29 g/dL (32-36); MEAN CORPUSCULAR VOLUME 69 fL (80-99); MEAN PLATELET VOLUME 9.1 fL (9.0-12.2); MONOCYTES # (AUTO) 0.5 10^3/uL (0.0-1.0); MONOCYTES % (AUTO) 7 % (0-12); NEUTROPHILS # (AUTO) 3.2 10^3/uL (1.8-7.8); NEUTROPHILS % (AUTO) 45 % (42-75); PLATELET COUNT 453 10^3/uL (130-400); WHITE BLOOD COUNT 7.2 10^3/uL (4.3-11.0)
[2021-09-03 14:51] LABS: ALBUMIN 4.4 GM/DL (3.2-4.5); BILIRUBIN,TOTAL 0.5 MG/DL (0.1-1.0); CALCIUM 9.8 MG/DL (8.5-10.1); CREATININE SERUM 0.77 MG/DL (0.60-1.30); POTASSIUM 3.8 MMOL/L (3.6-5.0); TOTAL PROTEIN 7.5 GM/DL (6.4-8.2)
[2021-10-13 15:02] LABS: BASOPHILS % (AUTO) 1 % (0-10); EOSINOPHILS # (AUTO) 0.3 10^3/uL (0.0-0.3); EOSINOPHILS % (AUTO) 5 % (0-10); HEMATOCRIT 33 % (35-52); HEMOGLOBIN 9.7 g/dL (11.5-16.0); LYMPHOCYTES # (AUTO) 2.1 10^3/uL (1.0-4.0); LYMPHOCYTES % (AUTO) 35 % (12-44); MEAN CORPUSCULAR HEMOGLOBIN 21 pg (25-34); MEAN CORPUSCULAR HGB CONC 29 g/dL (32-36); MEAN CORPUSCULAR VOLUME 73 fL (80-99); MEAN PLATELET VOLUME 9.3 fL (9.0-12.2); MONOCYTES # (AUTO) 0.4 10^3/uL (0.0-1.0); MONOCYTES % (AUTO) 7 % (0-12); NEUTROPHILS % (AUTO) 52 % (42-75); PLATELET COUNT 344 10^3/uL (130-400); WHITE BLOOD COUNT 5.8 10^3/uL (4.3-11.0)
[2021-10-13 15:22] LABS: ALBUMIN 4.1 GM/DL (3.2-4.5); BILIRUBIN,TOTAL 0.5 MG/DL (0.1-1.0); CALCIUM 8.7 MG/DL (8.5-10.1); CREATININE SERUM 0.76 MG/DL (0.60-1.30); POTASSIUM 3.6 MMOL/L (3.6-5.0); TOTAL PROTEIN 6.8 GM/DL (6.4-8.2)
[~2021-10-30 12:55] MED LIST changes: +FERRIC CARBOXYMALTOSE (CANCER) 750 MG in NS (IVPB) CANCER CENTER 250 ML IV SCH
== END 2021-11-21 | disposition home or self-care (01) ==
LOC: ONC 12:55
PROVIDERS: ATTEND Internal Medicine Hematology & Oncology
DX: D50.8 Other iron deficiency anemias (principal); Z98.0 Intestinal bypass and anastomosis status
CPT/HCPCS: 80053; 82728; 83540; 83550; 85025; G0463; 82274; 96365; 99213; 99214